=== PATIENT | female | born 1935 | race Two or more races ===

== ENCOUNTER → 2017-03-05 | Outpatient (CLI) | payer MEDICARE, OTHER ==
[~2017-03-05] MED LIST: ALBU8HFA IH; AMIO200T44 PO; ATOR40TA28 PO; BUME1TAB17 PO; CARB4OS OU; CARV25 PO; CHOL10002 PO; DSS100 PO; IPRAHFA IH; KDUR20 PO; LEVE500T53 PO; LEVO75 PO; LISI40TA4 PO; LORA10TA7 PO; MULT-29 PO; PANT40TA25 PO; PARO20TA24 PO; TIMO10DR28 OU; TRAM50TA4 PO; TRAV5DRO OU
== END | disposition home or self-care (01) ==
LOC: RESP 10:31
PROVIDERS: ATTEND Internal Medicine Critical Care Medicine
DX: I51.7 Cardiomegaly (principal); J44.9 Chronic obstructive pulmonary disease, unspecified; Z98.890 Other specified postprocedural states
CPT/HCPCS: 71020; 94010; 94726; 94727; 94729